=== PATIENT | male | born 1950 | race Caucasian/White ===

== ENCOUNTER 2020-01-26 10:51 | Inpatient (IN) | payer MEDICARE, OTHER ==
[~2020-01-26] VITALS: Ht 180.3 cm; Wt 93.8 kg
--- NOTE | 2020-01-26 11:32 | NUR ---
CARE FLIGHT FROM Anjali MOSS AFTER HAVING A SYNCOPAL/DIZZY EVENT AT 0400. HX A-FIB ON COUMADIN. PT HAD 1 DAY OF DIARRHEA/N/V. CARE FLIGHT REPORTS 27WBC, 3.1 LACTIC, TESTED FOR COVID, 3,400 ML FLUID, ZOSYN. PT IN ROOM IN GOWN WITH CONT TOTER, SPO2, BP Q 30 MIN, SIDE RAILS UP X2, CALL LIGHT IN REACH.
--- NOTE | 2020-01-26 11:47 | NUR ---
PT ON NOREPINEPHRINE .4 BY EMS, MED TURNED DOWN TO 0.2 AT THIS TIME
[2020-01-26] MEDS ORDERED: WARF2.5T32 PO (11:57)
[2020-01-26] MEDS ORDERED: SODIUM CHLORIDE 0.9% 1,000ML IVBOLUS ONE (12:00)
[2020-01-26] MEDS ORDERED: VANCOMYCIN PER PHARMACY MC ONE (12:00)
[2020-01-26] MEDS ORDERED: VANCOMYCIN 2,000 MG in SODIUM CHLORIDE 0.9% 500 ML IV ONE (12:00)
[2020-01-26] MEDS ORDERED: SODIUM CHLORIDE FLUSH 10ML SYR IVF ONE (12:00)
[2020-01-26] MEDS ORDERED: PHARMACOKINETIC CONSULTATION MC ONE (12:00)
[2020-01-26] MEDS ORDERED: NOREPINEPHRINE 8 MG in SODIUM CHLORIDE 0.9% 242 ML IV PRN (12:00)
[2020-01-26] MEDS ORDERED: AMIO200T42 PO (12:11)
[2020-01-26] MEDS ORDERED: LISI2.5T PO (12:11)
[2020-01-26] MEDS ORDERED: ATOR-2 PO (12:11)
[2020-01-26] MEDS ORDERED: METO25TA35 PO (12:11)
[2020-01-26] MEDS ORDERED: FURO20TA3 PO (12:11)
--- NOTE | 2020-01-26 12:11 | NUR ---
LAB IN ROOM
--- NOTE | 2020-01-26 12:19 | NUR ---
REPORT FROM [facility], ASSUME CARE OF PT AT THIS TIME. LABS DRAWN BY TECH. LEVO AND NS INFUSING. SEPSIS FLOW SHEET STARTED. VS UPDATED IN COMPUTER. CALL LIGHT WITHIN REACH.
[2020-01-26 12:31] LABS: MEAN CORPUSCULAR HEMOGLOBIN 30.6 pg (27.5-34.5); MEAN CORPUSCULAR HGB CONC 33.2 g/dL (33.2-36.2); MEAN PLATELET VOLUME 9.2 fL (7.4-10.4); PLATELET COUNT 267 x10^3/uL (130-400); RED BLOOD COUNT 4.48 x10^6/uL (4.38-5.82); RED CELL DISTRIBUTION WIDTH 14.8 % (9.4-14.8)
[2020-01-26 12:36] LABS: INTERNATIONAL NORMALIZED RATIO 3.05 (0.93-1.1)
[2020-01-26 12:40] LABS: ALANINE AMINOTRANSFERASE 24 U/L (12-78); ALBUMIN 3.4 g/dL (3.4-5.0); ANION GAP 5 mmol/L (5-15); CALCIUM 7.9 mg/dL (8.5-10.1); CHLORIDE 112 mmol/L (98-107)
[2020-01-26 12:42] LABS: ALKALINE PHOSPHATASE 58 U/L (45-117); BILIRUBIN,TOTAL 0.8 mg/dL (0.2-1.0); TOTAL PROTEIN 6.3 g/dL (6.4-8.2)
--- NOTE | 2020-01-26 12:48 | NUR ---
VANCOMYCIN INFUSING AFTER BC. LEVO GTT TITRATED TO 0.1, BP 119/50. CONTINUE TO MONITOR, ERP IN TO SEE PT. PT ONLY C/O AT THIS TIME IS "FATIGUE". CALL LIGHT WITHIN REACH.
[2020-01-26 13:01] LABS: MD YES
[2020-01-26 13:02] LABS: BANDS%(MANUAL) 4 % (0-7); LYMPH#(MANUAL) 0.52 x10^3/uL (1-3.4); LYMPHS% (MANUAL) 3 % (22-44); MONOS#(MANUAL) 1.39 x10^3/uL (0.3-2.7); MONOS% (MANUAL) 8 % (2-9); SEG#(MANUAL) 14.79 x10^3/uL (1.8-6.8); SEGS% (MANUAL) 85 % (42-75)
[2020-01-26 13:04] LABS: <PLATELET ESTIMATE> ADEQUATE; <PLT MORPHOLOGY> NORMAL PLT MORPH; <RBC MORPHOLOGY> NORMAL
--- NOTE | 2020-01-26 13:55 | NUR ---
PT COMFORTABLE, NAD. BP 129/52, CONSISTENTLY AT 120S/50S FOR ONE HOUR. LEVOPHED STOPPED, CONTINUE CLOSE MONITORING. THIS REPORTED TO DR PROCTOR AND THROUGHPUT. CALL LIGHT WITHIN REACH, LIGHTS DIMMED.
[2020-01-26] MEDS ORDERED: ALBUMIN HUMAN IV ONE (14:00)
[2020-01-26] MEDS ORDERED: ONDANSETRON ODT 4 MG PO PRN (14:30)
[2020-01-26] MEDS ORDERED: ACETAMINOPHEN 325 MG TABLET PO PRN (14:30)
[2020-01-26] MEDS ORDERED: ONDANSETRON 2MG/ML, 2ML IVPush PRN (14:30)
--- NOTE | 2020-01-26 14:50 | NUR ---
CALL TO PHARMACY TO REQUEST ALBUMIN
[2020-01-26] MEDS: VANCOMYCIN 50 MG/ML ORAL SUSP PO SCH (14:59)
--- NOTE | 2020-01-26 15:15 | NUR ---
ATTEMPT TO CALL REPORT.
--- NOTE | 2020-01-26 15:22 | NUR ---
2ND CALL TO PHARMACY REGARDING ALBUMIN ORDER. [employer]TE[employer] ME[employer]IC TO BRING ALBUMIN TO ER.
--- NOTE | 2020-01-26 15:35 | NUR ---
2ND ATTEMPT TO CALL REPORT.
[2020-01-26] MEDS: SODIUM CHLORIDE 0.9% 1,000 ML IV SCH (15:58)
--- NOTE | 2020-01-26 15:59 | NUR ---
REPORT TO VICENTA CHUA, PT READY FOR TRANSPORT TO FLOOR.
[2020-01-26] MEDS: LACTOBACILLUS CHEW TABLET PO SCH ×2 (16:00→22:08)
[2020-01-26 16:35] VITALS: BP 92/49
[2020-01-26 16:36] VITALS: BP 106/61
[2020-01-26 16:37] VITALS: BP 115/64
[2020-01-26] MEDS ORDERED: WARFARIN 2 MG TABLET PO-COUM SCH (18:00)
[2020-01-26 18:30] VITALS: BP 92/52
[2020-01-26] MEDS ORDERED: ATORVASTATIN 80 MG TABLET PO SCH (21:00)
[2020-01-26 22:04] VITALS: BP 88/44
[2020-01-26] MEDS: METOPROLOL TARTRATE 25 MG TAB PO SCH (22:06)
[2020-01-26] MEDS: AMIODARONE 200 MG TABLET PO SCH (22:07)
[2020-01-27] MEDS: VANCOMYCIN 50 MG/ML ORAL SUSP PO SCH ×3 (00:01→11:41)
[2020-01-27 01:00] VITALS: BP 95/56
[2020-01-27 05:41] LABS: BASOPHILS % (AUTO) 1 % (0-1); EOSINOPHILS % (AUTO) 1 % (1-7); LYMPHOCYTES % (AUTO) 21 % (22-44); MEAN CORPUSCULAR HEMOGLOBIN 31.6 pg (27.5-34.5); MEAN CORPUSCULAR HGB CONC 33.9 g/dL (33.2-36.2); MEAN PLATELET VOLUME 8.9 fL (7.4-10.4); MONOCYTES % (AUTO) 9 % (2-9); NEUTROPHILS % (AUTO) 68 % (42-75); PLATELET COUNT 209 x10^3/uL (130-400); RED BLOOD COUNT 3.91 x10^6/uL (4.38-5.82); RED CELL DISTRIBUTION WIDTH 15.3 % (9.4-14.8)
[2020-01-27 05:45] LABS: INTERNATIONAL NORMALIZED RATIO 3.99 (0.93-1.1); PROTHROMBIN TIME 41.7 Seconds (9.6-11.5)
[2020-01-27 05:53] LABS: ANION GAP 5 mmol/L (5-15); CHLORIDE 115 mmol/L (98-107)
[2020-01-27 05:54] LABS: CREATININE 0.85 mg/dL (0.7-1.3)
[2020-01-27 06:13] LABS: MD NO
[2020-01-27 06:20] VITALS: BP 126/70
[2020-01-27] MEDS: SODIUM CHLORIDE 0.9% 1,000 ML IV SCH (07:10)
[2020-01-27] MEDS: METOPROLOL TARTRATE 25 MG TAB PO SCH (08:56)
[2020-01-27] MEDS: LACTOBACILLUS CHEW TABLET PO SCH ×2 (08:56→15:19)
[2020-01-27] MEDS: AMIODARONE 200 MG TABLET PO SCH (08:56)
[2020-01-27] MEDS ORDERED: LISINOPRIL 5 MG TABLET PO SCH (09:00)
[2020-01-27 10:05] VITALS: BP 120/68
[2020-01-27 10:06] VITALS: BP 129/73
[2020-01-27 10:08] VITALS: BP 143/76
[2020-01-27 12:12] VITALS: BP 131/75
[2020-01-27 12:59] LABS: CLOSTRIDIUM DIFFICILE ANTIGEN NEGATIVE; CLOSTRIDIUM DIFFICILE TOXIN NEGATIVE (Negative)
[2020-01-27] MEDS ORDERED: WARFARIN 1 MG TABLET PO-COUM ONE (18:00)
== END 2020-01-27 16:54 | disposition home or self-care (01) | DRG 315 ==
LOC: ED 12:45 → EDIP 13:35 → 4WST 16:14
PROVIDERS: ADMIT Internal Medicine; ATTEND Internal Medicine
DX: I95.9 Hypotension, unspecified (principal); D68.69 Other thrombophilia; I50.32 Chronic diastolic (congestive) heart failure; R55 Syncope and collapse; W18.39XA Other fall on same level, initial encounter; D72.829 Elevated white blood cell count, unspecified; I11.0 Hypertensive heart disease with heart failure; I48.91 Unspecified atrial fibrillation; K57.90 Diverticulosis of intestine, part unspecified, without perforation or abscess without bleeding; Z96.649 Presence of unspecified artificial hip joint; Z79.01 Long term (current) use of anticoagulants; Z86.73 Personal history of transient ischemic attack (TIA), and cerebral infarction without residual deficits; Y93.89 Activity, other specified; Y92.89 Other specified places as the place of occurrence of the external cause; Y99.8 Other external cause status; Z87.891 Personal history of nicotine dependence
CPT/HCPCS: 36415; J3370; 71045; 80048; 80053; 83605; 85025; 85610; 87040; 87324; 93005; 93306; G0378; P9047; J7030; J7040; J7050